=== PATIENT | female | born 1955 | race Hispanic/Latino ===

== ENCOUNTER → 2020-10-10 | Outpatient (CLI) | payer MEDICARE | LOC: GMA CAST 17:18 | PROVIDERS: ATTEND Family Medicine Sports Medicine | DX: N30.00 Acute cystitis without hematuria (principal) ==

== ENCOUNTER → 2020-11-17 | Outpatient (CLI) | payer MEDICARE | LOC: GMA CAST 12:47 | PROVIDERS: ATTEND Family Medicine Sports Medicine | DX: D51.9 Vitamin B12 deficiency anemia, unspecified (principal); D64.9 Anemia, unspecified; R53.82 Chronic fatigue, unspecified; R73.9 Hyperglycemia, unspecified; R53.83 Other fatigue; E78.2 Mixed hyperlipidemia ==

== ENCOUNTER 2020-12-15 05:57 | Day surgery (SDC) | payer MEDICARE ==
[2020-12-15] MEDS ORDERED: LACTATED RINGERS 1,000 ML ONE (06:46)
[2020-12-15] MEDS ORDERED: PROPOFOL 200 MG/20 ML VIAL IV ONE (07:00)
[2020-12-15] MEDS ORDERED: LIDOCAINE 1% 10 ML VIAL INJ ONE (07:00)
--- NOTE | 2020-12-15 09:09 | OP ---
DATE OF PROCEDURE: 12/15/20 PREOPERATIVE DIAGNOSIS: 1. First screening colonoscopy. POSTOPERATIVE DIAGNOSIS: 1. Melanosis coli. 2. Mild diverticulosis. PROCEDURE: 1. Colonoscopy. SURGEON: Jay Mei MD ANESTHESIA: General. FINDINGS: As described. CONDITION: Stable. PLAN: Discharge. Call office to arrange mammogram. PROCEDURE: The patient was in lateral position, comfortable. Anesthesia was induced. Digital rectal exam was normal. The scope was inserted through the anus without difficulty with no evidence of a fissure, bleeding or significant hemorrhoids. It was then passed to the cecum with minimal difficulty as was identified by the appendiceal orifice and terminal ileum. We did notice melanosis coli throughout. Upon withdrawal, the mucosal surfaces otherwise appeared normal with no obvious inflammation. No polyps were seen within the melanosis coli. It would affect some view potentially, but we did see no significant polyps throughout the entire colon with an adequate prep. The patient tolerated the procedure and was taken to Recovery to be discharged. She has not had a mammogram in 3 years, so I have asked her to contact the office and we will help arrange that for her. #[id number]
[2020-12-15 10:06] VITALS: BP 128/76; TEMP 97.4; O2SAT 100
== END 2020-12-15 09:50 | disposition home or self-care (01) ==
LOC: AMB 05:57
PROVIDERS: ATTEND Surgery
DX: Z12.11 Encounter for screening for malignant neoplasm of colon (principal); K63.89 Other specified diseases of intestine; K57.30 Diverticulosis of large intestine without perforation or abscess without bleeding; M16.0 Bilateral primary osteoarthritis of hip; M54.17 Radiculopathy, lumbosacral region; Z90.710 Acquired absence of both cervix and uterus; Z79.899 Other long term (current) drug therapy
CPT/HCPCS: 00812; G0121; J3490; J7120